=== PATIENT | female | born 2000 | race Caucasian/White ===

== ENCOUNTER 2025-04-09 22:24 | Inpatient (IN) | payer MEDICAID, SELFPAY ==
--- NOTE | 2025-04-08 12:18 | ESHP_ITS ---
RE: DULCE GUZMAN : 2000 DATE OF ADMISSION: 04/09/2025 HISTORY OF PRESENT ILLNESS: This is a 24-year-old 1, para 0 with due date of 04/02/2025 with intrauterine at 41 weeks on 04/09/2025, who presents for induction of labor. The patient's care with [facility] has been uncomplicated. She reports normal movement. She denies any leaking or bleeding. She reports occasional contractions. ALLERGIES: AMOXICILLIN. MEDICATIONS: 1. multivitamin 1 p.o. daily. 2. Aspirin 81 mg 1 p.o. daily. SOCIAL HISTORY: She denies any alcohol, drug use or smoking. PAST MEDICAL HISTORY: Denies. FAMILY HISTORY: Hypertension, heart disease, stroke. PAST SURGICAL HISTORY: Denies. PHYSICAL EXAMINATION: VITAL SIGNS: Blood pressure 122/80, heart rate 88, respiration 18. Temperature 98.6. Weight 156 pounds. HEENT: Oropharynx and sclerae clear. LUNGS: Clear to auscultation bilaterally. HEART: Regular rate and rhythm. ABDOMEN: Gravid term size with estimated weight 7-1/2 pounds. PELVIC: See RN notes. EXTREMITIES: Nontender. SKIN: No gross rashes or lesions. NEUROLOGIC: No focal deficit. ASSESSMENT AND PLAN: Intrauterine at 41 weeks. Postdates induction. Informed consent was obtained. The patient made aware of the risks, complications, alternatives and benefits of operative vaginal delivery and delivery and agrees with these modes of delivery if indicated. DT: 10:34:50 TT: 11:54:00 Ref: [id number] - TID: [id number] MTDD
--- NOTE | 2025-04-09 11:19 | PC.NURSE ---
PT CALLED ASKING FOR BED AVAILABILITY FOR IOL, INFORMED OF NO BEDS AVAILABLE AT THIS TIME, WILL CALL ONCE BED BECOMES AVAILABLE, EDUCATED ON KICK COUNT AND LABOR PRECAUTIONS, PT VERBALIZED UNDERSTANDING
[2025-04-09 22:33] VITALS: BP 131/86; PULSE 69
[2025-04-09 22:36] VITALS: BMI 27.3
[2025-04-09 22:50] VITALS: RESP 16
[2025-04-09 22:56] VITALS: RESP 18; TEMP 36.9
[2025-04-09] MEDS: RINGERS LACTATED 1000 ML 1,000 ML 125 ML IV (23:28)
[2025-04-09 23:31] LABS: Basophils # (Auto) 0.0 Thou/mm3 (0.0-0.2); Basophils % (Auto) 0 % (0-2.5); Eosinophils # (Auto) 0.1 Thou/mm3 (0.0-0.5); Eosinophils % (Auto) 1 % (0-10); Hematocrit 38.9 % (36.0-46.0); Hemoglobin 13.1 g/dL (12.0-16.0); Immature Granulocytes Auto 0.09 Thou/mm3 (0.00-0.00); Lymphocytes # (Auto) 3.4 Thou/mm3 (1.0-4.8); Lymphocytes % (Auto) 35 % (10-50); Mean Corpuscular HGB Conc 33.7 g/dl (31.0-37.0); Mean Corpuscular Hemoglobin 27.2 pg (25.0-35.0); Mean Corpuscular Volume 81 fL (80-100); Monocytes # (Auto) 0.9 Thou/mm3 (0.0-0.8); Monocytes % (Auto) 10 % (0-12); Neutrophils # (Auto) 5.2 Thou/mm3 (1.8-7.7); Neutrophils % (Auto) 53 % (37-80); Nucleated Red Blood Cell # 0.00 Thou/mm3 (0.00-0.00); Nucleated Red Blood Cell % 0 /100 WBC (0); Platelet Count 242 Thou/mm3 (140-440); RDW Standard Deviation 43.4 fL (36.4-46.3); Red Blood Count 4.82 Miln/mm3 (4.00-5.20); White Blood Count 9.8 Thou/mm3 (3.6-11.0)
[2025-04-10] VITALS (84 sets, daily range): BP systolic 0–176; BP diastolic 0–132; PULSE 53–87; RESP 15–18; TEMP 36.6–36.9; O2SAT 94–100
[2025-04-10 00:07] LABS: Syphilis Nonreactive (Nonreactive)
[2025-04-10 00:39] LABS: Amphetamine/Metham Scrn,Ur OB Negative (Negative); Benzoylecgonine Screen, Ur OB Negative (Negative); Opiate Screen,Urine OB Negative (Negative); THC Screen,Urine OB Negative (Negative)
[2025-04-10] MEDS: RINGERS LACTATED 1000 ML 1,000 ML 125 ML IV ×3 (02:53→20:19)
--- NOTE | 2025-04-10 06:20 | PD.LDPN ---
Documentation for date of: 04/10/25 OB Labor Progress Note Pain Control Comments: None Pelvic Exam Dilation (cm): 2 Effacement (%): 50 station: -3 Amniotic membrane status: Intact Comments: Per RN exam Contractions Monitor mode: External Contraction frequency: 5-7 Contraction intensity: Moderate Status status: Category l Assessment and Plan Comments: Induction of labor ongoing Anticipate . History of Present Illness HPI No pain, cervidil in place
[2025-04-10] MEDS: OXYTOCIN in NS 30 units 30 UNIT/500 ML BAG IV (21:10)
[2025-04-11] VITALS (70 sets, daily range): BP systolic 0–139; BP diastolic 0–93; PULSE 56–116; RESP 15–27; TEMP 36.5–37.1; O2SAT 91–100
[2025-04-11] MEDS: RINGERS LACTATED 1000 ML 1,000 ML 125 ML IV (00:11)
[2025-04-11] MEDS: GENTAMICIN/NS 80 MG IVPB 80 MG/50 ML PIGGYBACK 50 MG IV (02:44)
[2025-04-11] MEDS: FAMOTIDINE INJ 10 MG/ML VIAL 2 ML 20 MG IV (02:44)
[2025-04-11] MEDS: CITRIC ACID/SODIUM CITR 15 ML UDC (BICITRA) 30 ML PO (02:45)
--- NOTE | 2025-04-11 02:49 | PD.LDPN ---
Documentation for date of: 04/11/25 OB Labor Progress Note Pelvic Exam Dilation (cm): 2 Effacement (%): 70 station: -2 Amniotic membrane status: Intact Contractions Monitor mode: Internal Contraction frequency: 3.5-5 Contraction pattern: Coupling Contraction intensity: Strong Status status: Category ll Assessment and Plan Comments: Delivery informed consent was obtained. The patient was made aware of the risks, complications, alternatives and benefits of the proposed procedure and she agrees.
[2025-04-11] MEDS: CLINDAMYCIN 900MG IVPB 900 MG in PRE-MIXED 1 BAG 50 MG IV (02:52)
--- NOTE | 2025-04-11 03:30 | PD.GYNPROC ---
Operative Note - STRATEGIC SOLUTIONS CONSULTANT Procedure Date of procedure: 04/11/25 Procedure Performed: Primary section via Pfannenstiel skin incision Indication: Intrauterine at 41 weeks and 2 days Category 2 tracing refractory to intrauterine resuscitation Remote from delivery Pre-Op diagnosis: Intrauterine at 41 weeks and 2 days Category 2 tracing refractory to intrauterine resuscitation Remote from deliver Post-Op diagnosis: Intrauterine at 41 weeks and 2 days Category 2 tracing refractory to intrauterine resuscitation Remote from deliver Anesthesia type: Epidural Procedure description: After proper informed consent was obtained and the patient was made aware of the risks, complications, alternatives and benefits of the proposed procedure she was taken to the operating room where she underwent induction of spinal anesthesia. She was prepped and draped in the usual sterile fashion. A timeout was performed.? A Pfannenstiel skin incision was made with the scalpel and carried through to the underlying layer of fascia with the Bovie. The fascia was nicked in the midline incision and the incision was extended bilaterally with the Bovie. The inferior aspect of the fascial incision was grasped with Giovanni clamps elevated and the underlying rectus muscle dissected off with the Bovie. The superior aspect the fascial incision was grasped with Giovanni clamps elevated and the underlying rectus muscle dissected off with the Bovie. The rectus muscles were in the midline. The peritoneum was grasped between 2 Smith clamps and entered sharply with the Metzenbaum scissors. The peritoneum was extended superiorly and inferiorly with good visualization of the bladder. The vesicouterine peritoneum was incised transversely and the bladder flap created digitally. A [place] blade was inserted. A low transverse incision was made in the uterus with a scapel and the incision was extended digitally. The infant's head delivered and the mouth and nose were suctioned with the bulb suction. The shoulder and body delivered atraumatically. The cord was clamped after 30 second delayed cord clamping and the cord was cut.? The was handed off to the waiting Pediatric staff, cord blood was collected for lab testing. The placenta was removed complete and intact. The uterus was exteriorized and cleared of all clots and debris. The uterine incision was closed with #1-0 chromic catgut suture in a running interlocking fashion. A second layer of the same suture was used to imbricate the first layer and obtain excellent hemostasis. The vesicouterine peritoneum was closed with 2-0 chromic catgut suture in a running fashion. The firm uterus was returned to the abdomen. The gutters were cleared of all clots and debris. The peritoneum was closed with 0 chromic catgut suture in running fashion. The rectus muscle was closed with 0 chromic catgut suture. The fascia was closed with 0 Vicryl beginning at each angle and ending in the center in a running fashion. The subcutaneous tissue was irrigated with warmed normal saline solution and found to be hemostatic. The subcutaneous tissue was closed with 2-0 chromic catgut suture in a running fashion. The skin was closed with 4-0 Monocryl. A Dermabond Prineo dressing was applied and a sterile pressure dressing was applied.? She tolerated the procedure well. Counts were correct. I discussed with the patient the nature of her condition, intraoperative findings and expectation for recovery all? questions answered. Specimen: none Estimated blood loss (ml): 700 Findings: Viable male infant 8 and 9 Right occiput transverse. Weight see RN notes Clear amniotic fluid. Uterus initially atonic but responded to uterotonic. Normal appearing uterus, ovaries and tubes. Placenta removed complete and intact. Complications: other (Uterine atony) Surgical staff Jon Warren, Surgeon. Diagnosis Discharge Diagnosis (1) delivery delivered: Status: Acute Problem List Completed Was Problem List Reviewed/Reconciled?: Yes
--- NOTE | 2025-04-11 03:41 | ESDS_ITS ---
DS: Providers Provider Date of admission: 04/09/25 22:24 Primary care physician: Kerwin Julien MD Admitting Provider: Harrison Warren MD Attending Provider on Admission: Harrison Warren MD Attending Provider on DC: Harrison Warren MD Discharging Provider: Harrison Warren MD DS: Diagnosis Problem List Completed Was Problem List Reviewed/Reconciled?: Yes Summary/Hosp Course Brief History: Peripartum Data Delivery Method: Low Transverse Episiotomy Description: None Time Spent with Patient Time attestation: Total time spent providing and/or coordinating discharge services: Exam Vital Signs Temp Pulse Resp BP Pulse Ox O2 Del Method 98.2 F 65 17 0/0 L 100 Room Air 04/11/25 01:03 04/11/25 01:52 04/11/25 01:03 04/11/25 02:24 04/11/25 02:49 04/10/25 22:23 Discharge Plan Plan Patient Disposition: HOME (Self Care) Patient condition on transfer: Stable Prescriptions/Referrals Prescriptions/Med Rec: New ibuprofen 600 mg tablet 600 mg PO Q6H PRN (Reason: pain) Qty: 30 0RF oxycodone-acetaminophen 5-325 mg tablet 1 tab PO Q6H MDD 4 PRN (Reason: pain) Qty: 20 0RF Continued PNV no.95-ferrous fumarate-FA [] 28 mg iron- 800 mcg tablet 1 tab PO QDAY Referrals: Kerwin Julien MD [Primary Care Provider, Family Practice] Patient/Caregiver Discharge Instructions Discharge Activity: activity as tolerated Other Discharge Activity Instructions:: Follow up office 1 week. Print Language: Mongolian Stand Alone Forms: Rivka Award Info., Patient Portal Info Letter Discharge Order Discharge Orders: Discharge (Routine); Ordered 04/13/25 Ordered By: Harrison Warren Planned Discharge Date 04/13/25
[2025-04-11] MEDS: ONDANSETRON INJ 2 MG/ML INJ 2 ML 4 MG IVP (04:19)
[2025-04-11] MEDS: KETOROLAC INJ 30 MG/ML VIAL IVP ×2 (04:19→14:50)
[2025-04-11] MEDS: OXYTOCIN in NS 20 units 20 UNIT/1,000 ML BAG 125 UNIT IV (07:13)
--- NOTE | 2025-04-11 07:28 | OBDSUM_ITS ---
Data (Ackerman) Data : 1 Delivery Data (Ackerman) Labor Data Initiation of labor: Induction Induction/Augmentation Agent: Cytotec-PO, Cervidil and Pitocin ROM date: 04/10/25 ROM time: 23:25 Amniotic membrane rupture type: Spontaneous Amniotic fluid description: Clear Delivery Data EDC: 04/02/25 EDC calculated by:: LMP/early US confirmation Onset of labor date: 04/10/25 Onset of labor time: 23:30 delivery date: 04/11/25 [place] delivery time: 03:10 Gestational age (weeks): 41 Gestational age (days): 2 Placenta delivery date: 04/11/25 Placenta delivery time: 03:11 Delivered by: GEILING Delivery nurse: Marianne FRENCH RN. Viktororn nurse: Mikki DOINS RN. Airport Operations Manager at delivery: No Support person(s) at delivery: FOB Other staff at delivery: Chacorta MOSER RN. CEBAB2 HOT WATER HEATER INSTALLER, MCELC HAND DRILLER. Delivery Method Delivery method: Low Transverse Presentation: Vertex position: ROT Anesthesia Type Anesthesia Type: Epidural Anesthesia type: Epidural Placenta Placenta delivery description: Manual Removal Cord blood sent to lab: Yes cord blood collection: Cord Blood Type Episiotomy Episiotomy description: None EBL Estimated blood loss (ml): 700 Umbilical Cord cord description: 3 Vessels Complications Complications: Uterine atony [place] Data (Ackerman) Data 's gender: Male Identification band number: [id number] weight (gms): 7 lb 12.164 oz Weight (pounds): 7 lbs and 12.2 ozs 1 minute: 8 5 minutes: 9
[2025-04-11] MEDS: HYDROcodone/APAP 5/325 TABLET 1 TAB PO (08:37)
[2025-04-11] MEDS: DOCUSATE SOD 100 MG CAPSULE PO (08:37)
[2025-04-11 09:33] LABS: Basophils # (Auto) 0.0 Thou/mm3 (0.0-0.2); Basophils % (Auto) 0 % (0-2.5); Eosinophils # (Auto) 0.0 Thou/mm3 (0.0-0.5); Eosinophils % (Auto) 0 % (0-10); Hematocrit 32.9 % (36.0-46.0); Hemoglobin 11.3 g/dL (12.0-16.0); Immature Granulocytes Auto 0.05 Thou/mm3 (0.00-0.00); Lymphocytes # (Auto) 1.0 Thou/mm3 (1.0-4.8); Lymphocytes % (Auto) 7 % (10-50); Mean Corpuscular HGB Conc 34.3 g/dl (31.0-37.0); Mean Corpuscular Hemoglobin 28.0 pg (25.0-35.0); Mean Corpuscular Volume 82 fL (80-100); Monocytes # (Auto) 0.5 Thou/mm3 (0.0-0.8); Monocytes % (Auto) 4 % (0-12); Neutrophils # (Auto) 12.4 Thou/mm3 (1.8-7.7); Neutrophils % (Auto) 88 % (37-80); Nucleated Red Blood Cell # 0.00 Thou/mm3 (0.00-0.00); Nucleated Red Blood Cell % 0 /100 WBC (0); Platelet Count 209 Thou/mm3 (140-440); RDW Standard Deviation 43.5 fL (36.4-46.3); Red Blood Count 4.03 Miln/mm3 (4.00-5.20); White Blood Count 14.0 Thou/mm3 (3.6-11.0)
--- NOTE | 2025-04-11 10:00 | PC.SS ---
EASTER BUNNY conducted bedside contact with the patient to address nursing referral indicating patient possessed history of THC use.? Toxicology screening at admission negative.? EASTER BUNNY introduced self and role.? Present with patient was Jaya SHARMA.? Patient gave consent for FOB to be present during discussion.? EASTER BUNNY discussed basis of referral.? Patient confirmed recreational use of THC.? Patient stated that during time of use, unaware of .? Upon confirmation of , patient ceased use.? Patient states not planning to continue recreational use of THC.? , Jorge; is the patient?s first child.? Infant was delivered via .? Patient plans of .? OB services provided by Dr. Warren.? Patient confirms consistency with OB appointments.? Patient is aligned with [facility].? Patient is not receiving SNAP or TANF.? Patient denies history of alcohol/drug abuse.? Patient denies CWS intervention.? Patient denies episodes of domestic violence.? Patient denies possessing a history of mental health, reports no current possession of depression or anxiety.? Patient has access to appropriate supplies and equipment; to include a car seat.? FOB will provide transportation upon discharge.? Patient describes possessing support system consisting of FOB, parents and extended family.? EASTER BUNNY provided the patient with community resources to include [employer] and Warm Line.? No further intervention required at this time, social and political studies professor will be available to address any further concerns.? EASTER BUNNY updated bedside nurse.?
--- NOTE | 2025-04-11 18:53 | PC.NURSE ---
MD Warren called @1850 patient complaining of chest pain, All vitals WNL. ordered Protonix 40mg PO daily
[2025-04-11] MEDS: PANTOPRAZOLE 40 MG TABLET PO (19:35)
[2025-04-12 04:00] VITALS: BP 120/74; PULSE 81; RESP 18; TEMP 36.4; O2SAT 99
--- NOTE | 2025-04-12 06:29 | ESPR_ITS ---
RE: DULCE GUZMAN : 2000 DATE OF SERVICE: 04/12/2025 SUBJECTIVE: Postop day #1. Patient denies any problem or complaint. She is voiding. She is ambulating. She is tolerating a diet. She is passing flatus. She denies any excessive vaginal bleeding. She denies any dizziness or lightheadedness. She denies any chest pain, palpitations, shortness of breath, or lower extremity pain. OBJECTIVE: Vital Signs: Blood pressure 120/74, heart rate 81, respirations 18, temperature is 97.5, pulse ox is 99% on room air. Lungs: Clear to auscultation bilaterally. Heart: Regular rate and rhythm. Abdomen. Fundus is firm and dressing dry and intact. Extremities: Nontender. Hemoglobin pre-delivery is 13.1. Post-delivery is 11.3. ASSESSMENT: Postop day #1, status post delivery. Epigastric/chest discomfort secondary to gastroesophageal reflux disease, resolved with Protonix. PLAN: Remove dressing. Discontinue IV. Encourage ambulation. support. Possible discharge home tomorrow. DT: 05:56:41 TT: 06:28:00 Ref: [id number] - TID: [id number]
[2025-04-12] MEDS: DOCUSATE SOD 100 MG CAPSULE PO (08:39)
[2025-04-12 08:40] VITALS: BP 108/71; PULSE 86; RESP 16; TEMP 36.8; O2SAT 97
--- NOTE | 2025-04-12 10:21 | CHAP ---
Patient was visited by a Spiritual Care Volunteer on 04/11/2025 between 0900 and 1140 and received comfort, encouragement and/or prayer. Patient also received a blessing on infant and family.
[2025-04-12 15:50] VITALS: BP 123/73; PULSE 80; RESP 15; TEMP 36.9; O2SAT 99
[2025-04-12 20:30] VITALS: BP 121/79; PULSE 78; RESP 16; TEMP 36.7; O2SAT 98
[2025-04-13] MEDS: IBUPROFEN TAB 400 MG TABLET 800 MG PO (03:00)
[2025-04-13 03:58] VITALS: BP 119/75; PULSE 70; RESP 14; TEMP 36.4; O2SAT 97
--- NOTE | 2025-04-13 07:59 | ESPR_ITS ---
RE: DULCE GUZMAN : 2000 DATE OF SERVICE: 04/13/2025 SUBJECTIVE: The patient denies any problem or complaints. She is voiding, she is ambulating, she is tolerating her diet, and she is passing flatus. She denies any excessive vaginal bleeding. She denies any dizziness or lightheadedness. She denies any chest pain, palpitations, shortness of breath, or lower extremity pain. OBJECTIVE: VITAL SIGNS: Blood pressure 119/75, heart rate 70, respirations 14, temperature is 97.5. Pulse ox is 97 % on room air. LUNGS: Clear to auscultation bilaterally. HEART: Regular rate and rhythm. ABDOMEN: Incision clear and intact. Fundus is firm. EXTREMITIES: Nontender. ASSESSMENT: Postoperative day #2, status post delivery. PLAN: Discharge home. Discharge instructions given. Follow up in the office in one week. DT: 06:47:29 TT: 07:58:00 Ref: [id number] - TID: [id number]
== END 2025-04-13 12:12 | disposition home or self-care (01) | DRG 540 ==
LOC: S4SX 04-10 11:52 → S4NX 04-11 03:12
PROVIDERS: Admitting Provider Specialist; PCP Family Medicine; Visit Provider Specialist
PROC: 10D00Z1 Extraction of Products of Conception, Low, Open Approach (ICD-10-PCS; CPT 59514; principal; 2025-04-11 02:30)
DX: O48.0 Post-term pregnancy (principal); Z37.0 Single live birth; Z3A.41 41 weeks gestation of pregnancy; O99.62 Diseases of the digestive system complicating childbirth; K21.9 Gastro-esophageal reflux disease without esophagitis; O62.2 Other uterine inertia; Z88.0 Allergy status to penicillin
CPT/HCPCS: 36415; 80307; 85025; 86780; 86850; 86900; 86901; 94762; A4217; A4314; A4649; J0736; J1580; J1885; J2210; J2250; J2371; J2405; J2590; J2795; J3490; J7120; S0191; A9270